=== PATIENT | male | born 1955 | race Caucasian/White ===

== ENCOUNTER 2018-10-28 19:39 | Emergency (ER) | payer OTHER ==
[2018-10-28 19:45] VITALS: BP 159/98
--- NOTE | 2018-10-28 20:19 | ED Physician Documentation ---
PD HPI UPPER EXT INJURY - Stated complaint Stated Complaint: LEFT FOREARM WOUND - Chief complaint Chief Complaint: Laceration - History obtained from History obtained from: Patient - History of Present Illness Location: Left, Forearm Type of injury: Laceration (he was using utility knife and it slipped and stabbed into left forearm. No numbness. Some pain with wrist movement.) Where injury occurred: Home Timing - onset: Today Timing - details: Abrupt onset, Still present Improved by: Rest Worsened by: Palpating Associated symptoms: No: Weakness, Numbness Recently seen: Not recently seen Review of Systems Skin: reports: Laceration (s) Neurologic: denies: Focal weakness, Numbness PD PAST MEDICAL HISTORY - Past Medical History Past Medical History: No Cardiovascular: None Respiratory: None Neuro: None Endocrine/Autoimmune: None GI: None : None HEENT: None Psych: None Musculoskeletal: None Derm: None - Past Surgical History Past Surgical History: Yes General: EGD, Appendectomy, Colonoscopy Ortho: Rotator cuff repair - Present Medications Home Medications: Ambulatory Orders Medication Instructions Recorded Confirmed No Known Home Medications 05/08/13 05/08/13 - Allergies Allergies/Adverse Reactions: Allergies Allergy/AdvReac Type Severity Reaction Status Date / Time acetaminophen [From Vicodin] AdvReac Intermediate Nausea Verified 10/28/18 19:44 hydrocodone bitartrate * AdvReac Intermediate Nausea Verified 10/28/18 19:44 [From Vicodin] - Social History Does the pt smoke?: No Smoking Status: Never smoker Does the pt drink ETOH?: No Does the pt have substance abuse?: No - Immunizations Immunizations are current?: Yes - POLST Patient has POLST: No POLST Status: Full Code PD ED PE NORMAL - Vitals Vital signs reviewed: Yes - General General: Alert and oriented X 3, No acute distress, Well developed/nourished - Derm Derm: Normal color, Warm and dry - Extremities Extremities: Other (left forearm with 1.3 cm laceration volar aspect. Normal movement in wrist and fingers. Some pain with hyperext of the wrist. Not with flexion. ) - Neuro Neuro: No motor deficit, No sensory deficit Results - Vitals Vitals: Vital Signs - 24 hr 10/28/18 19:41 Temperature 35.9 C L Heart Rate 88 Respiratory 19 Rate Blood Pressure 159/98 H O2 Saturation 97 Oxygen O2 Source Room air Procedures - Laceration (location) left volar mid forearm Length in cm: 1.2 Wound type: Linear, Into subcut fat, Into muscle, Clean Neurovascular status: Sensory intact, Motor intact, Vascular intact Tendon involvement: Tendon intact Anesthesia: Lidocaine 1% with epi Wound Preparation: Wound explored, To the base. No: FB identified Skin layer closure: Nylon, Running, Size #-0 - enter number (4) Other: Patient tolerated well, No complications, Neurovascular intact, Dressing applied, Tetanus UTD Complexity: Simple Departure - Departure Disposition: 01 Home, Self Care Clinical Impression: Laceration of left forearm Qualifiers: Encounter type: initial encounter Qualified Code(s): S51.812A - Laceration without foreign body of left forearm, initial encounter Condition: Stable Record reviewed to determine appropriate education?: Yes Instructions: ED Laceration All Comments: It is okay to wash and shower. Clean off the wound twice a day with soap and water, or peroxide and water. Apply some antibiotic ointment to it to keep it moist. Also to watch for signs of infection such as purulence, redness or increasing pain. Return to your primary care or the ER at the specified time for suture removal. Suture removal 8 to 10 days Tylenol or ibuprofen if needed for pains. Discharge Date/Time: 10/28/18 20:25
== END 2018-10-28 20:25 | disposition home or self-care (01) ==
LOC: ED 19:39
DX: S51.812A Laceration without foreign body of left forearm, initial encounter (principal); W26.0XXA Contact with knife, initial encounter; Y92.009 Unspecified place in unspecified non-institutional (private) residence as the place of occurrence of the external cause
CPT/HCPCS: 12001; 99281